=== PATIENT | female | born 2005 | race Hispanic/Latino ===

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

== ENCOUNTER 2024-01-24 18:46 | Emergency (ER) | payer SELFPAY ==
[2024-01-24] MEDS ORDERED: Ondansetron PF 4 MG/2 ML Vial ONE (19:31)
[2024-01-24] MEDS ORDERED: Famotidine/PF 20 mg/2ml Vial ONE (19:31)
[2024-01-24] MEDS ORDERED: Sodium Chloride 0.9% 1,000 ML ONE (19:31)
[2024-01-24 19:33] LABS: #Eosinphils 0.1 thou/uL (0.0-0.7); #Lymphocytes 0.8 thou/uL (1.20-3.40); #Monocytes 0.3 thou/uL (0.11-0.59); #Neutrophils 8.9 thou/uL (1.40-6.50); %Basophils 0.3 % (0.0-1.0); %Lymphocytes 7.8 % (28.0-48.0); %Monocytes 2.7 % (0.0-4.0); %Neutrophils 88.1 % (31.0-61.0); Hematocrit 41.6 % (36.0-47.0); Hemoglobin 13.3 g/dL (12.0-16.0); Mean Corpuscular HGB CONC 31.9 g/dL (32.0-36.0); Mean Corpuscular Hemoglobin 27.8 pg (25.0-35.0); Mean Corpuscular Volume 87.4 fl (78.0-98.0); Mean Platelet Volume 7.2 fL (7.4-10.4); Platelet Count 309 10x3/uL (130-400); RBC Distribution Width 12.6 % (11.5-14.5); Red Blood Cell (RBC) Count 4.76 mill/uL (4.00-5.20); White Blood Cell (WBC) Count 10.1 10x3/uL (4.8-10.8)
[2024-01-24 19:38] LABS: Bilirubin Small (Negative); Blood, Urine Negative (Negative); Clarity Clear (Clear); Glucose, Urine (Dipstick) Negative (Negative); Ketone, Urine > or equal to 80 mg/dL (Negative); Leukocyte Negative (Negative); Nitrite Negative (Negative); Protein, Urine (Dipstick) Trace mg/dL (Neg-Trace); Urobilinogen 0.2 mg/dL (Less than 2)
[2024-01-24 19:44] LABS: BHCG - Serum POSITIVE (NEGATIVE); Pregs Control Background? CLEAR/WHITE (CLR/WHITE); Pregs Control Bar Appear? YES (CONTROL BAR)
[2024-01-24 19:50] LABS: Specific Gravity, Urine 1.028 (1.005-1.030)
[2024-01-24 19:52] LABS: ALT (SGPT) 14 U/L (8-55); AST (SGOT) 19 U/L (5-30); Albumin 3.5 g/dL (3.5-5.0); Alkaline Phosphatase 61 U/L (40-100); Anion Gap 18 mmol/L (10-20); BUN (Urea Nitrogen) 9 mg/dL (8.4-21.0); Bilirubin, Total 0.6 mg/dL (0.2-1.2); Calc. Creatinine Clearance 0 mL/min (70-130); Calcium 8.9 mg/dL (7.8-10.44); Carbon Dioxide 17 mmol/L (22-29); Chloride 106 mmol/L (98-107); Estimated GFR 131; Glucose 81 mg/dL (70-105); Lipase 15 U/L (8-78); Potassium 3.6 mmol/L (3.5-5.1); Protein, Total 7.5 g/dL (6.0-8.3); Sodium 137 mmol/L (136-145)
[2024-01-24 19:54] LABS: CAUTI Indications for Culture Pregnancy
[2024-01-24 19:55] LABS: Bacteria/HPF None Seen HPF (None Seen); Mucous/LPF Rare LPF (<2+); RBC/HPF 0-3 HPF (0-3); Squamous Epithelial 0-3 HPF (0-3); WBC/HPF 0-3 HPF (0-3)
[2024-01-24 19:56] LABS: Urine Culture Reflex Yes Yes
== END 2024-01-24 21:35 | disposition short-term general hospital (02) ==
LOC: MADERS 18:46
DX: O21.0 Mild hyperemesis gravidarum (principal); O26.892 Other specified pregnancy related conditions, second trimester; Z3A.16 16 weeks gestation of pregnancy
CPT/HCPCS: 80053; 81001; 83605; 83690; 84702; 84703; 85025; 86900; 86901; 87086; 93005; 96361; 96374; 96375; J2405; J7050; S0028

== ENCOUNTER 2024-08-15 22:49 | Emergency (ER) | payer OTHER ==
[2024-08-15] MEDS ORDERED: Bacitracin 1 PK ONE (23:12)
[2024-08-15] MEDS ORDERED: Boostrix 0.5 ML (Tdap) VIAL (>/=7 yrs of age) ONE (23:12)
== END 2024-08-15 23:34 | disposition home or self-care (01) ==
LOC: MADERS 22:49
DX: S50.812A Abrasion of left forearm, initial encounter (principal); Z23 Encounter for immunization; W45.0XXA Nail entering through skin, initial encounter
CPT/HCPCS: 90471; 90715